=== PATIENT | female | born 2000 | race Native Hawaiian/Other Pacific Islander ===

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

== ENCOUNTER 2023-02-01 20:25 | Emergency (ER) | payer OTHER ==
[~2023-02-01] VITALS: Ht 167.6 cm; Wt 104.3 kg
[2023-02-01 20:33] VITALS: TEMP 98.7
[2023-02-01 22:08] VITALS: BP 127/63
== END 2023-02-01 22:08 | disposition home or self-care (01) ==
LOC: ED 20:25
DX: H10.89 Other conjunctivitis (principal)
CPT/HCPCS: 96372; 99283; J0696

== ENCOUNTER 2023-02-07 10:10 | Outpatient (CLI) | payer OTHER ==
[~2023-02-07] VITALS: Ht 167.6 cm; Wt 104.3 kg
[2023-02-07 10:36] VITALS: BP 103/71; TEMP 98.4
[2023-02-07 10:41] LABS: POTASSIUM 4.1 mmol/L (3.6-5.2)
[2023-02-07 12:20] VITALS: BP 121/64; TEMP 98.3
== END 2023-02-07 20:16 | disposition home or self-care (01) ==
LOC: INF 10:10
PROVIDERS: ATTEND Family Medicine
DX: E86.0 Dehydration (principal)
CPT/HCPCS: 36415; 80053; 96365